=== PATIENT | female | born 1985 | race Caucasian/White ===

== ENCOUNTER 2018-08-11 05:13 | Inpatient (IN) | payer OTHER ==
[2018-08-11] MEDS ORDERED: OXYTOCIN 30 UNITS/LR 500 ML IV ×3 (05:30→06:30)
[2018-08-11] MEDS ORDERED: CARBOPROST 250 MCG INJ IM ×2 (05:30→06:30)
[2018-08-11] MEDS ORDERED: MISOPROSTOL 200 MCG TAB PR ×2 (05:30→06:30)
[2018-08-11] MEDS ORDERED: METHYLERGONOVINE 0.2 MG INJ IM ×2 (05:30→06:30)
[2018-08-11] MEDS: OXYTOCIN 30 UNITS/LR 500 ML IV ×2 (05:39→05:40)
[2018-08-11] MEDS: LIDOCAINE 1% (MPF) 30 ML INJ INJ (05:42)
[2018-08-11 05:45] LABS: ADD MAN DIFF? NO
[2018-08-11 05:49] LABS: BASOPHILS % 0.4 % (0.0-2.0); EOSINOPHILS # 0.1 10^3/ul (0.0-0.5); EOSINOPHILS % 0.9 % (0.0-7.0); HEMATOCRIT 35.5 % (37.0-47.0); HEMOGLOBIN 10.9 g/dl (12.0-16.0); LYMPHOCYTES # 2.3 10^3/ul (0.8-2.9); LYMPHOCYTES % 21.2 % (15.0-51.0); MEAN CORPUSCULAR HEMOGLOBIN 27.3 pg (29.0-33.0); MEAN CORPUSCULAR HGB CONC 30.7 g/dl (32.0-37.0); MEAN CORPUSCULAR VOLUME 88.8 fl (82.0-101.0); MEAN PLATELET VOLUME 11.3 fl (7.4-10.4); MONOCYTE # 0.9 10^3/ul (0.3-0.9); MONOCYTES % 8.1 % (0.0-11.0); NEUTROPHIL # 7.4 10^3/ul (1.6-7.5); NEUTROPHILS % 68.9 % (39.0-77.0); PLATELET COUNT 191 10^3/UL (140-415); RED CELL DISTRIBUTION WIDTH 14.8 % (11.5-14.5)
[2018-08-11 05:49] LABS: WHITE BLOOD COUNT 10.7 10^3/ul (4.8-10.8)
[2018-08-11] MEDS: IBUPROFEN 600 MG TAB PO (06:05)
[2018-08-11 06:14] LABS: INR 0.92; PROTIME 12.5 Sec (11.9-14.9)
[2018-08-11 06:15] LABS: PARTIAL THROMBOPLASTIN TIME 25.8 Sec (23.0-35.0)
[2018-08-11] MEDS ORDERED: IBUPROFEN 600 MG TAB PO (06:30)
[2018-08-11] MEDS ORDERED: DIBUCAINE 1% 30 GM OINT TOP (06:30)
[2018-08-11] MEDS ORDERED: ACETAMINOPHEN 325 MG TAB PO ×2 (06:30)
[2018-08-11] MEDS ORDERED: ONDANSETRON 4 MG INJ IV (06:30)
[2018-08-11 08:21] LABS: HEPATITIS C VIRAL ANTIBODY NEGATIVE (NEGATIVE)
[2018-08-11 08:21] LABS: HIV 1&2 ANTIBODY NEGATIVE (NEGATIVE)
[2018-08-11] MEDS: LACTATED RINGER'S 1,000 ML IV* (08:30)
[2018-08-11 08:46] LABS: HEPATITIS B SURFACE ANTIGEN NEGATIVE (NEGATIVE)
[2018-08-11 15:05] LABS: RAPID PLASMA REAGIN NONREACTIVE (NR)
[2018-08-11] MEDS: LANOLIN HPA 1 PKT TOP (20:42)
[2018-08-11] MEDS: SENNA/DOCUSATE NA (8.6MG/50MG) TAB PO (20:42)
[2018-08-11] MEDS: MAGNESIUM HYDROXIDE 30ML CUP PO (20:42)
[2018-08-11] MEDS: WITCH HAZEL/GLYCERIN PAD PR (20:43)
[2018-08-11] MEDS: BENZOCAINE 20% 56 ML SPRAY TOP (20:43)
[2018-08-12 06:46] LABS: ADD MAN DIFF? NO
[2018-08-12 06:57] LABS: BASOPHIL # 0.1 10^3/ul (0.0-0.1); BASOPHILS % 0.4 % (0.0-2.0); EOSINOPHILS # 0.2 10^3/ul (0.0-0.5); EOSINOPHILS % 1.4 % (0.0-7.0); HEMOGLOBIN 9.5 g/dl (12.0-16.0); LYMPHOCYTES # 2.1 10^3/ul (0.8-2.9); LYMPHOCYTES % 17.5 % (15.0-51.0); MEAN CORPUSCULAR HEMOGLOBIN 27.5 pg (29.0-33.0); MEAN CORPUSCULAR HGB CONC 31.7 g/dl (32.0-37.0); MEAN CORPUSCULAR VOLUME 86.7 fl (82.0-101.0); MONOCYTE # 1.2 10^3/ul (0.3-0.9); MONOCYTES % 9.8 % (0.0-11.0); NEUTROPHIL # 8.5 10^3/ul (1.6-7.5); NEUTROPHILS % 70.4 % (39.0-77.0); PLATELET COUNT 182 10^3/UL (140-415); RED BLOOD COUNT 3.46 10^6/ul (4.20-5.40)
== END 2018-08-12 14:45 | disposition home or self-care (01) | DRG 807 ==
LOC: L-D 05:13 → PP1 06:11 → L-D 06:26 → PP1 08:32
PROVIDERS: Specialist
PROC: 10E0XZZ Delivery of Products of Conception, External Approach (ICD-10-PCS; principal; 2018-08-11)
PROC: 0HQ9XZZ Repair Perineum Skin, External Approach (ICD-10-PCS; 2018-08-11)
DX: O48.0 Post-term pregnancy (principal); Z37.0 Single live birth; O70.0 First degree perineal laceration during delivery; Z3A.41 41 weeks gestation of pregnancy
CPT/HCPCS: 59414; 85025; 85610; 85730; 86592; 86703; 86803; 86850; 86900; 86901; 87340; 88307; 99464